=== PATIENT | male | born 1950 | race Caucasian/White ===

== ENCOUNTER 2025-01-10 07:59 | Outpatient (CLI) | payer MEDICARE, OTHER ==
[2025-01-10] MEDS ORDERED: Iopamidol 370 76% 100 ML VIAL ONE (09:11)
[2025-01-10 10:13] LABS: Estimated GFR - POC 79.0
== END 2025-01-10 08:00 | disposition home or self-care (01) ==
LOC: CSHCT 07:59
PROVIDERS: ATTEND Specialist
DX: I71.40 Abdominal aortic aneurysm, without rupture, unspecified (principal); M51.17 Intervertebral disc disorders with radiculopathy, lumbosacral region; M47.27 Other spondylosis with radiculopathy, lumbosacral region; M48.07 Spinal stenosis, lumbosacral region
CPT/HCPCS: 36415; 72148; 74174; 82565